=== PATIENT | male | born 1955 | race Caucasian/White ===

== ENCOUNTER → 2018-06-28 | Outpatient (CLI) | payer OTHER ==
--- NOTE | 2018-07-03 10:23 | SLEEPHOME ---
DATE OF THE STUDY: 06/28/2018 ORDERED BY: ANGELES Glover Diagnostic home sleep testing was performed due to concern for the obstructive sleep apnea syndrome in this patient with a history of excessive somnolence and nonrestorative sleep, who has comorbidities of cardiomyopathy, hypertension, cardiac arrhythmia as well as coronary artery disease. For testing a nocturnal T3 respiratory monitoring device was used. Continuous record was made of pulse, oxygen saturation, airflow, chest and abdominal strain and body position. 9 hours and 59 minutes of data were reviewed. There were 4 hours and 59 minutes identified as time in bed. During the interval marked time in bed, there were 289 respiratory events identified of 10 seconds in duration or greater for a respiratory event index of 57.8. The events were both obstructive and central; 38 central and mixed apneas were identified. The patient's baseline pulse rate was 78 beats per minute. Pulse rate ranged from 60-101. Baseline saturation was 91%. Saturations fell to 71%. Testing was performed in both the supine and nonsupine positions. IMPRESSION: Abnormal home sleep testing with repetitive respiratory events and oxygen desaturations to 71% with a respiratory event index of 57.8 is consistent with the obstructive sleep apnea syndrome. RECOMMENDATIONS: The patient should undergo formal sleep evaluation and in laboratory pressure titration given the occurrence of central and mixed apneas the use of a bilevel device and a backup rate may be necessary.
== END ==
LOC: M SLEEP HO 11:38
PROVIDERS: ATTEND Nurse Practitioner Family
DX: G47.33 Obstructive sleep apnea (adult) (pediatric) (principal); R40.0 Somnolence; R06.83 Snoring

== ENCOUNTER → 2018-07-28 | Outpatient (CLI) | payer OTHER ==
--- NOTE | 2018-07-30 18:57 | SLEEPCENT ---
DATE OF PROCEDURE: 07/28/2018 ORDERED BY: Melania Carroll Nocturnal polysomnography was performed for the titration of pressure therapy in this patient with a clinical diagnosis of obstructive sleep apnea syndrome confirmed by home testing revealing a respiratory event index of 57.8. For testing, the patient was fit with a General Compression Simplus full face mask of medium size, 4 cm of water pressure were applied to the circuit and the lights were extinguished. 7 hours and 25 minutes of data were reviewed. There were 337 minutes of sleep identified. Sleep latency was normal at 11 minutes. Rapid eye movement (REM) latency was normal at 78 minutes. Sleep architecture was fair with three REM cycles noted. Overall sleep efficiency was 77.4%. The patient's electrocardiogram showed atrial fibrillation with a controlled ventricular response rate of 75 beats per minute. EEG showed fairly normal waveforms for awake and sleep. Respiratory events were fully palliated with continuous positive airway pressure (CPAP) at a pressure of 11. Further increases in pressure prompted the emergence of central events. IMPRESSION: Obstructive sleep apnea syndrome (G47.33). RECOMMENDATIONS: Nightly use of pressure therapy 11 cm of water.
== END ==
LOC: M SLEEP 19:24
PROVIDERS: ATTEND Nurse Practitioner Family
DX: G47.33 Obstructive sleep apnea (adult) (pediatric) (principal)

== ENCOUNTER → 2020-12-28 | Outpatient (CLI) | payer MEDICARE, OTHER ==
[~2020-12-28] MED LIST: CART240C3 PO; CARV12.5 PO; CARV25TA; CLOP75TA2 PO; D-20TAB PO; DILT240C83; ELIQ5TAB PO; GABA600T4; MECL-136; MULTTAB86 PO; PROBCAP14 PO; VALS160T2
== END ==
LOC: M LABSMTC 09:55
PROVIDERS: ATTEND Anesthesiology
DX: Z01.812 Encounter for preprocedural laboratory examination (principal); Z20.822 Contact with and (suspected) exposure to COVID-19

== ENCOUNTER 2021-01-01 08:39 | Day surgery (SDC) | payer MEDICARE, OTHER ==
[~2021-01-01] VITALS: Ht 167.6 cm; Wt 91.6 kg
[~2021-01-01 08:39] MED LIST changes: +NS 1,000 ML IV ONE
[2021-01-01] MEDS ORDERED: propofoL 200 MG/20 ML VIAL As Ordered ONE (11:15)
[2021-01-01 11:45] VITALS: BP 117/73
== END 2021-01-01 12:03 | disposition home or self-care (01) ==
LOC: M OPP 08:39
PROVIDERS: ATTEND Internal Medicine Gastroenterology
DX: K63.5 Polyp of colon (principal); K57.30 Diverticulosis of large intestine without perforation or abscess without bleeding; K64.8 Other hemorrhoids; R93.3 Abnormal findings on diagnostic imaging of other parts of digestive tract; Z79.899 Other long term (current) drug therapy; Z95.0 Presence of cardiac pacemaker

== ENCOUNTER → 2021-11-25 | Outpatient (CLI) | payer MEDICARE, OTHER ==
[~2021-11-25] MED LIST changes: +BICA50TA9 PO; -NS 1,000 ML IV ONE
== END ==
LOC: M ONCR 13:05
PROVIDERS: ATTEND General Practice
DX: C61 Malignant neoplasm of prostate (principal); I48.91 Unspecified atrial fibrillation; F17.210 Nicotine dependence, cigarettes, uncomplicated; Z79.01 Long term (current) use of anticoagulants; Z80.42 Family history of malignant neoplasm of prostate; Z88.6 Allergy status to analgesic agent

== ENCOUNTER 2021-12-16 07:45 | Outpatient (RCR) | payer MEDICARE, OTHER | END 2022-01-02 | LOC: M ONCR 07:45 | PROVIDERS: ATTEND General Practice | DX: C61 Malignant neoplasm of prostate (principal) ==

== ENCOUNTER → 2022-01-06 | Outpatient (CLI) | payer MEDICARE, OTHER ==
[~2022-01-06] MED LIST changes: +LEUPROLIDE 22.5MG KIT (LUPRON DEPOT) (FOR ONCOLOGY) IM SCH
== END ==
LOC: M ONCR 10:35
PROVIDERS: ATTEND General Practice
DX: C61 Malignant neoplasm of prostate (principal)
CPT/HCPCS: 96402; J9217

== ENCOUNTER 2022-01-11 09:43 | Outpatient (RCR) | payer MEDICARE, OTHER | END 2022-02-02 | LOC: M ONCR 09:43 | PROVIDERS: ATTEND General Practice | DX: C61 Malignant neoplasm of prostate (principal) | CPT/HCPCS: 77336; 77373; G0463 ==

== ENCOUNTER → 2022-04-08 | Outpatient (CLI) | payer MEDICARE, OTHER ==
[~2022-04-08] MED LIST changes: +ASPI-226 PO; +ATOR40TA75 PO; +FLOM0.4C39 PO; -LEUPROLIDE 22.5MG KIT (LUPRON DEPOT) (FOR ONCOLOGY) IM SCH; +METO1TAB33 PO
== END ==
LOC: M ONCR 10:16
PROVIDERS: ATTEND General Practice
DX: C61 Malignant neoplasm of prostate (principal); I48.91 Unspecified atrial fibrillation; F17.210 Nicotine dependence, cigarettes, uncomplicated; Z79.01 Long term (current) use of anticoagulants; Z79.02 Long term (current) use of antithrombotics/antiplatelets; Z79.82 Long term (current) use of aspirin; Z79.899 Other long term (current) drug therapy; Z88.6 Allergy status to analgesic agent

== ENCOUNTER → 2022-10-12 | Outpatient (CLI) | payer MEDICARE, OTHER | LOC: M ONCR 10:18 | PROVIDERS: ATTEND General Practice | DX: C61 Malignant neoplasm of prostate (principal); F17.210 Nicotine dependence, cigarettes, uncomplicated; Z72.89 Other problems related to lifestyle; Z79.01 Long term (current) use of anticoagulants; Z79.02 Long term (current) use of antithrombotics/antiplatelets; Z79.82 Long term (current) use of aspirin; Z79.899 Other long term (current) drug therapy; Z88.6 Allergy status to analgesic agent; Z92.29 Personal history of other drug therapy; Z92.3 Personal history of irradiation | CPT/HCPCS: 36415; 84153; G0463 ==

== ENCOUNTER → 2023-05-10 | Outpatient (CLI) | payer MEDICARE | LOC: M ONCR 07:59 | PROVIDERS: ATTEND General Practice | DX: C61 Malignant neoplasm of prostate (principal); Z71.2 Person consulting for explanation of examination or test findings; F17.210 Nicotine dependence, cigarettes, uncomplicated; Z79.02 Long term (current) use of antithrombotics/antiplatelets; Z79.82 Long term (current) use of aspirin; Z79.899 Other long term (current) drug therapy; Z88.6 Allergy status to analgesic agent; Z92.29 Personal history of other drug therapy; Z92.3 Personal history of irradiation ==

== ENCOUNTER → 2024-01-16 | Outpatient (CLI) | payer MEDICARE ==
[~2024-01-16] MED LIST changes: +BICA50TA4 PO; -BICA50TA9 PO; +GABA-1490; -GABA600T4
== END ==
LOC: M ONCR 08:22
PROVIDERS: ATTEND General Practice
DX: C61 Malignant neoplasm of prostate (principal); F17.210 Nicotine dependence, cigarettes, uncomplicated; Z92.3 Personal history of irradiation; Z92.29 Personal history of other drug therapy; Z79.82 Long term (current) use of aspirin; Z79.02 Long term (current) use of antithrombotics/antiplatelets; Z79.899 Other long term (current) drug therapy; Z88.6 Allergy status to analgesic agent

== ENCOUNTER → 2025-01-23 | Outpatient (CLI) | payer MEDICARE ==
[~2025-01-23] MED LIST changes: -FLOM0.4C39 PO; +TAMS-18 PO
== END ==
LOC: M ONCR 09:02
PROVIDERS: ATTEND General Practice
DX: C61 Malignant neoplasm of prostate (principal); K43.9 Ventral hernia without obstruction or gangrene; F17.218 Nicotine dependence, cigarettes, with other nicotine-induced disorders; Z92.29 Personal history of other drug therapy; Z92.3 Personal history of irradiation; Z79.02 Long term (current) use of antithrombotics/antiplatelets; Z79.82 Long term (current) use of aspirin; Z79.899 Other long term (current) drug therapy; Z88.6 Allergy status to analgesic agent